=== PATIENT | female | born 1970 | race Caucasian/White ===

== ENCOUNTER 2022-12-15 10:54 | Emergency (ER) | payer OTHER ==
[~2022-12-15] VITALS: Ht 172.7 cm; Wt 77.1 kg
[2022-12-15] MEDS ORDERED: ACETAMINOPHEN ES 500 MG TABLET ONE (11:15)
[2022-12-15] MEDS ORDERED: ACETAMINOPHEN ES 500 MG TABLET PO ONE (11:15)
[2022-12-15] MEDS ORDERED: BENZ-13 PO (12:16)
[2022-12-15] MEDS ORDERED: FLUT16SP16 BNOSTRILS (12:16)
[2022-12-15] MEDS ORDERED: PROM6.256 PO (12:16)
--- NOTE | 2022-12-15 12:24 | NUR ---
Patient discharged to home by Dr North in stable condition with brisk steady gait. Written and verbal after care instructions given. Patient verbalized understanding and compliance of instructions. Stressed follow up with primary doctor and art editor or return to ER for worsening s/s.
[2022-12-15 12:30] VITALS: BP 126/80
== END 2022-12-15 12:31 | disposition home or self-care (01) ==
LOC: ER 10:54
DX: B34.9 Viral infection, unspecified (principal); R07.89 Other chest pain; Z79.899 Other long term (current) drug therapy; Z20.822 Contact with and (suspected) exposure to COVID-19
CPT/HCPCS: 71045; A4663; A9150